=== PATIENT | female | born 1995 ===

== ENCOUNTER 2020-12-08 22:27 | Emergency (ER) | payer SELFPAY ==
--- NOTE | 2020-12-12 13:22 | Electrocardiograph Report ---
[facility] Test Date: 2020-12-08 Test Time: 22:38:19 Pat Name: MILVIA RANGEL Department: Room: Gender: F Certified Histologic Technician: NURSE : 1995 Requested By: DUKE TAM Order Number: [id number] Reading MD: Dee Crocker Measurements Intervals Boomer Rate: 73 P: 65 DE: 224 QRS: 63 QRSD: 98 T: 45 QT: 377 QTc: 415 Interpretive Statements Sinus rhythm Prolonged DE interval No previous ECG available for comparison Electronically Signed On 12-12-2020 13:22:05 EDT by Dee Crocker
== END 2020-12-08 23:00 | disposition left against medical advice (07) ==
LOC: ED 22:27
DX: R07.9 Chest pain, unspecified (principal); Z53.21 Procedure and treatment not carried out due to patient leaving prior to being seen by health care provider
CPT/HCPCS: 93005